=== PATIENT | female | born 1975 | race Two or more races ===

== ENCOUNTER 2020-10-27 05:49 | Day surgery (SDC) | payer OTHER ==
[~2020-10-27 05:49] MED LIST: SYNTHROID125 MCG PO
== END 2020-10-27 19:24 | disposition home or self-care (01) ==
LOC: CIR.AMB 05:49
PROVIDERS: ATTEND Obstetrics & Gynecology
DX: N84.1 Polyp of cervix uteri (principal); N84.0 Polyp of corpus uteri; Z20.822 Contact with and (suspected) exposure to COVID-19

== ENCOUNTER 2021-01-10 10:15 | Inpatient (IN) | payer OTHER ==
[~2021-01-10] VITALS: Ht 167.6 cm; Wt 78.5 kg
[2021-01-18] MEDS ORDERED: PERCOCET 5-3251 EACH PO (08:02)
== END 2021-01-18 10:51 | disposition home or self-care (01) | DRG 331 ==
LOC: SURH 01-12 10:30 → O/R 01-17 05:18 → SURH 01-17 07:00 → SURG 01-17 10:21 → SURH 01-17 10:30
PROVIDERS: ADMIT Surgery; ATTEND Surgery
PROC: 0DBH4ZZ Excision of Cecum, Percutaneous Endoscopic Approach (ICD-10-PCS; principal; 2021-01-17 07:00)
DX: D12.1 Benign neoplasm of appendix (principal); D12.0 Benign neoplasm of cecum; D37.4 Neoplasm of uncertain behavior of colon; Z83.71 Family history of colonic polyps